=== PATIENT | male | born 1965 | race African-American/Black ===

== ENCOUNTER 2020-08-06 18:36 | Emergency (ER) | payer OTHER ==
[~2020-08-06 18:36] MED LIST: Iopamidol 370 76% 100 ML VIAL ONE
[2020-08-06 19:35] LABS: #Basophils 0.1 thou/uL (0.0-0.2); #Eosinphils 0.2 thou/uL (0.0-0.7); #Lymphocytes 1.8 thou/uL (1.20-3.40); #Monocytes 0.5 thou/uL (0.11-0.59); #Neutrophils 5.4 thou/uL (1.40-6.50); %Basophils 0.7 % (0.0-1.0); %Eosinophils 2.4 % (0.0-10.0); %Lymphocytes 22.2 % (21.0-51.0); %Monocytes 6.7 % (0.0-10.0); Hemoglobin 13.4 g/dL (14.0-18.0); Mean Corpuscular HGB CONC 33.9 g/dL (32.0-36.0); Mean Corpuscular Hemoglobin 29.3 pg (27.0-31.0); Mean Corpuscular Volume 86.5 fL (78.0-98.0); Mean Platelet Volume 9.3 fL (7.4-10.4); Platelet Count 160 thou/uL (130-400); RBC Distribution Width 12.8 % (11.5-14.5); Red Blood Cell (RBC) Count 4.56 mill/uL (4.70-6.10); White Blood Cell (WBC) Count 7.9 thou/uL (4.8-10.8)
[2020-08-06] MEDS ORDERED: Morphine 4 MG/ML VIAL ONE ×2 (19:53→23:10)
[2020-08-06] MEDS ORDERED: Ondansetron PF 4 MG/2 ML Vial ONE (19:53)
[2020-08-06] MEDS ORDERED: Piperacillin/Tazobactam 4.5 GM VIAL ONE (19:53)
[2020-08-06 19:58] LABS: ALT (SGPT) 14 U/L (8-55); AST (SGOT) 18 U/L (5-34); Albumin 3.8 g/dL (3.5-5.0); Alkaline Phosphatase 99 U/L (40-110); Anion Gap 12 mmol/L (10-20); BUN (Urea Nitrogen) 13 mg/dL (8.4-25.7); Bilirubin, Total 0.5 mg/dL (0.2-1.2); Calc. Creatinine Clearance 0 mL/min (70-130); Calcium 9.1 mg/dL (7.8-10.44); Carbon Dioxide 24 mmol/L (22-29); Chloride 104 mmol/L (98-107); Estimated GFR-MDRD 63; Globulin 3.8 g/dL (2.4-3.5); Glucose 109 mg/dL (70-105); Potassium 3.3 mmol/L (3.5-5.1); Protein, Total 7.6 g/dL (6.0-8.3); Sodium 137 mmol/L (136-145)
--- NOTE | 2020-08-06 20:57 | CT ---
CT left thigh with IV contrast HISTORY: Pain. Abscess. FINDINGS: Centered within the deep subcutaneous tissues at the anterolateral aspect of the left mid t high is an irregular shaped collection of gas and fluid measuring up to 6.8 cm length by 6.0 cm width by 1.2 cm depth. It extends to the underlying muscle superficial fascia but not into the muscle . Muscle bundles and deep fat planes are intact. There is significant stranding within the surrounding subcutaneous tissues and thickening of the overlying skin. Internal fixation of the left femur is evident without jazlyn-hardware lucency. Old fracture of the lef t inferior pubic ramus is apparent. There is a tiny dystrophic calcification within the vastus lateralis muscle at the level of the mid femur. IMPRESSION : Large subcutaneous abscess collection at the anterolateral aspect of the left mid thigh. Significant surrounding subcutaneous inflammation and overlying skin thickening. No involvement of the deep muscular structures.
== END 2020-08-07 01:42 | disposition short-term general hospital (02) ==
LOC: ERS 18:36
DX: L03.116 Cellulitis of left lower limb (principal); I10 Essential (primary) hypertension; Z79.899 Other long term (current) drug therapy
CPT/HCPCS: 36415; 80053; 83605; 85025; 87040; 87070; 87077; 87186; 87205; 96365; 96366; 96367; 96375; 96376; J2270; J2405; J2543; J3370; J7030; Q9967